=== PATIENT | male | born 1940 | race Caucasian/White ===

== ENCOUNTER 2017-09-20 07:16 | Inpatient (IN) ==
[2017-09-20] MEDS ORDERED: Chlorhexidine 4% Topical 120 APPLIC/120 ML Bottle TOPICAL SCH (09:45)
[2017-09-20] MEDS ORDERED: Sodium Chlor 0.9% Inj 40 ML, Bupivacaine Liposo PF 1.3% Inj 20 ML P-ARTICULR SCH ×2 (09:45)
[2017-09-20] MEDS ORDERED: TRANEXAMIC ACID IV.SIG SCH ×3 (10:00→16:00)
[2017-09-20] MEDS ORDERED: SODIUM CHLOR 0.9% IV.SIG SCH ×3 (10:00→16:00)
[2017-09-20] MEDS ORDERED: Chlorhexidine Gluconate 2% 1 Pack (2 Cloths) TOPICAL SCH ×2 (10:15→10:30)
[2017-09-20] MEDS ORDERED: Metoprolol Tartrate 25 MG Tablet PO SCH ×2 (10:15→10:30)
[2017-09-20] MEDS: ceFAZolin 2 GM Premix Inj 2 GM/50 ML PIGGYBACK IV.SIG SCH (10:40)
[2017-09-20] MEDS ORDERED: Propofol Inj 500 MG/50 ML Vial ONE ×3 (10:53→12:37)
[2017-09-20] MEDS ORDERED: Sodium Chlor 0.9% Inj 500 ML IV.SIG SCH ×2 (11:00)
[2017-09-20] MEDS ORDERED: Phenylephrine/NS 1000 MCG/10ML Syringe IV.PUSH ONE (12:00)
[2017-09-20] MEDS ORDERED: Tranexamic Acid Inj 1,000 MG in Sodium Chlor 0.9% Inj 100 ML IV.SIG SCH (12:43)
--- NOTE | 2017-09-20 13:14 | P.OP ---
- Preoperative Diagnosis (1) Primary osteoarthritis of right hip - Postoperative Diagnosis (1) Primary osteoarthritis of right hip Date of procedure: 09/20/17 Procedure: Right total hip arthroplasty using Lalo prosthesis. Anesthesia: local, spinal Surgeon: Alfredito Taylor MD Customer Care Representative: ANKITA Moore Estimated blood loss (mL): 200 Pathology: none sent Operation and Findings: Indications and Findings: This 77-year-old man has had right hip pain progressively worsening over the past several months. His ambulation tolerance is down to 1 block. He has not responded to conservative measures including nonsteroidal anti-inflammatory agents, activity modification, exercise and ambulatory aids. He was seen by a physician in [place] and treated up there. He subsequently received relocated back down to [place] for treatment of his hip. Physical findings showed limited range of motion of the hip with tenderness on range of motion. He had an antalgic gait. X-rays showed osteoarthritis in the hip including osteophytes femoral head and acetabulum with joint space narrowing and irregularity in the shape of the femoral head. Operative findings: There was loss of articular cartilage to expose subchondral bone on the acetabular and femoral side with femoral and acetabular osteophytes. The right leg was slightly longer than the left prior to the procedure. Implants: The acetabular component was a 54 mm outer diameter trident 2 Tritanium cluster hole acetabular shell with a 36 mm inner diameter X3 polyethylene 0 lip liner. The femoral component was an Accolade 2 size 5 x 132 neck angle. The femoral head was a Biolox Delta 36 mm outer diameter with a - 5 mm offset. The patient was brought to the clean air operating suite and a spinal anesthetic was administered. The patient was positioned into a lateral position with the operative hip up on a [employer] lateral positioner. The hip and lower extremity were prepped with alcohol, Hibiclens and ChloraPrep and draped in the usual manner with the hip draped free. Patient received prophylactic antibiotics preoperatively. The patient also received tranexamic acid preoperatively. An appropriate timeout procedure was carried out. An incision was made from the midportion of the greater trochanter proximally and posteriorly paralleling the fibers of the gluteus rafita. The incision was deepened through subcutaneous tissues down to the fascia scarlett and gluteus fascia. The gluteus fascia was then split longitudinally in line with its fibers up to the upper portion of the fascia scarlett. With wound towels in place, the Charnley retractor was inserted. The sciatic nerve was identified and protected throughout the procedure. Dissection was then carried down to the interval between the gluteus minimus and the piriformis. A retractor was inserted. The piriformis and obturator conjoined tendon was released from the greater trochanter and reflected off the capsule. A capsulotomy was made longitudinally along the femoral neck to the base of the femoral neck and then curved distally along the posterior aspect of the greater trochanter. The hip was internally rotated. Further release of the external rotators was carried out exposing the hip. The hip was dislocated. The femoral neck was transected at the appropriate level using the oscillating saw placement of appropriate retractors. The femoral head was removed. Preparation of the femur was initiated with a box osteotome followed by a curet to identify the medullary canal. Broaching was then initiated with the size 0 broach and went in 1 size increments up to size 5. The broach handle was removed. The femoral neck was then trimmed with a calcar planar. Attention was then directed to the acetabulum. Soft tissues were debrided from the acetabulum. Retractors were placed about the acetabulum. Reaming was then initiated with the 45 millimeter reamer and went in 1-2 mm increments up to the 54 millimeter diameter reamer. A trial reduction with the 54 millimeter trial prosthesis was carried out. When this was deemed to be appropriate, the trial prosthesis was removed. The acetabulum was irrigated and cleaned. The actual prosthesis as noted above was impacted into place and seated appropriately. Drill holes were made and sounded. An appropriate sized screw was inserted to stabilize the acetabulum further. The liner as noted above was inserted into the acetabular shell and impacted into place. Osteophytes were trimmed from the acetabulum. Local anesthetic was administered throughout the area of the acetabulum and anterior aspect of the femur. The trial neck was placed on the broach for the above-noted prosthesis. The femoral head trial was placed onto the femoral neck . A trial reduction was carried out. Adjustment was made as needed. The stability, leg length and motion were excellent. There was no pistoning. The trial prosthesis was removed. The broach was removed. The femoral component was impacted into the medullary canal of the femur after irrigation and suctioning. When this was appropriately seated a trial reduction was again carried out with the trial prosthesis. There was no pistoning. The leg length was appropriate. The stability and motion were excellent. The trial prosthesis was then removed. After cleaning and drying the trunion of the femoral component, the above-noted femoral head was impacted onto the trunnion. The hip was reduced. The stability and mobility were again checked along with leg lengths as noted above. The hip was positioned appropriately and closure commenced after the remainder of the local anesthetic was injected throughout the hip. The external rotators and capsule were repaired with #1 Vicryl interrupted transosseous sutures with a Krakw technique to reattach the external rotators and capsule to the posterior aspect of the greater trochanter. The capsule itself on the superior aspect was closed with #1 Vicryl interrupted [id number] sutures. The sciatic nerve was inspected. The fascia scarlett and gluteus fascia were repaired with #1 Vicryl interrupted [id number] sutures. The subcutaneous tissues were closed with 2-0 Vicryl interrupted simple sutures with buried knots. The skin was closed with a continuous subcuticular closure of 4-0 Monocryl. The wound was then approximated with Dermabond Prineo. A dry sterile dressing was applied to the hip. A knee immobilizer was applied to the leg. The patient was transferred from the operating room to the recovery room in satisfactory condition having tolerated the procedure well. Counts are correct. Specimens: None. Estimated blood loss: 250
[2017-09-20] MEDS ORDERED: Post-op Orders (for Pharmacy) OTHER STA (13:18)
[2017-09-20] MEDS ORDERED: Aluminum/Magnesium/Simethacone Susp 30 ML UDC PO PRN (13:18)
[2017-09-20] MEDS ORDERED: Acetaminophen 325 MG Tablet PO PRN (13:18)
[2017-09-20] MEDS ORDERED: Tranexamic Acid Inj 0 MG in Sodium Chlor 0.9% Inj 100 ML IV.SIG ONE (13:18)
[2017-09-20] MEDS ORDERED: Zolpidem Tartrate 5 MG Tablet PO PRN (13:18)
[2017-09-20] MEDS ORDERED: Bisacodyl 10 MG Supp RECTAL PRN (13:18)
[2017-09-20] MEDS ORDERED: Morphine Inj 4 MG/ML Vial IV.PUSH PRN (13:18)
--- NOTE | 2017-09-20 13:21 | P.DCO ---
- Physical Therapy Physical Therapy: Gait training Hip: Total hip, Protocol: Right, Posterior hip precautions, Progress to weight bearing Canvas Knee Splint: When in bed with 2 pillows between thighs Right Lower Extremity Weight Bearing: Weight bearing as tolerated Right Lower Extremity Range of Motion: Active ROM - Nursing Nursing: Dressing changes Dressing changes: Daily dressing change (Do not remove Dermabond Prineo.), Coverderm/Primapore - Certification Need for Home Health services: I have seen patient Jose Porter on 09/20/17. My clinical findings support the need for the requested home health care services because: Need for Home Health Services: Limited ability to care for self, High risk of falls Homebound Certification: I certify that my clinical findings support that this patient is homebound because: Homebound Certification: Post-op weakness, Unsteady gait/balance, Unsafe to leave home unassisted
[2017-09-20] MEDS: Ketorolac Inj 30 MG/ML (IVP) Vial IV.PUSH SCH ×2 (14:20→21:45)
--- NOTE | 2017-09-20 14:34 | XR ---
EXAM DATE: 09/20/2017 2:29 PM EDT AGE/SEX: 77 years / Male INDICATIONS: Right total hip replacement. CLINICAL DATA: This is the patient's initial encounter. Patient reports that signs and symptoms have been present for 1 day and indicates a pain score of 0/10. MEDICAL/SURGICAL HISTORY: Osteoarthritis. . Left total hip replacement. COMPARISON: No prior exams available for comparison. FINDINGS: Bilateral total hip arthroplasties are noted. There is trace subcutaneous air about the right hip nusrat nt. The femoral and acetabular components appear well seated. There is no fracture or dislocation. CONCLUSION: Interval right total hip arthroplasty. Electronically signed by: Trell Lujan MD 09/20/2017 2:32 PM EDT
--- NOTE | 2017-09-20 17:41 | P.CONIM ---
History of Present Illness Service: [facility] [place] Consult date: 09/20/17 Requesting Physician: Alfredito Taylor Reason for Consult: Medical management Primary Care Provider: Jose Alberto MD Family Provider: Jose Alberto MD History of Present Illness: 77 YOWM with history of HLD, OA, glaucoma, and allergic rhinitis admitted for elective R total hip replacement. [facility] [place] consulted for medical management. Patient seen post-operatively. Reports pain is well-controlled. Denies CP, SOB, abdominal pain, N/V. PMFSH - History History Provided By: Patient - Medical History Medical History: Medical History (Last Reviewed 09/20/17 @ 15:26 by Elisabeth Schulz PT) Carpal tunnel syndrome on left Benign prostate hyperplasia Glaucoma Hearing aid worn Hyperlipidemia Osteoarthritis of left hip Pain of right hip joint Wears eyeglasses - Surgical History Surgical History: Surgical History (Last Reviewed 09/20/17 @ 15:26 by Elisabeth Schulz PT) History of mandibular surgery History of total bilateral knee replacement (TKR) History of total left hip replacement Hx of appendectomy Hx of inguinal hernia repair - Tobacco History Second Hand Smoke Exposure: No Tobacco Use In Past 30 Days: No Smoking Status: Former smoker - Alcohol History How Often Do You Have a Drink Containing Alcohol: 4 or more times a week - Substance Use History Substance History: No History of Abuse - Travel History Recent Travel in the [place] Within the Last 8 Weeks: Yes Medications and Allergies Active Medications: Active Medications Acetaminophen (Tylenol) 650 mg PO Q6H PRN PRN Reason: Pain Less Than 3 On Scale Hydrocodone Bitart/Acetaminophen ([place] 7.5/325) 1 tab PO Q4H PRN PRN Reason: PAIN SCALE 4 TO 6 MODERATE Hydrocodone Bitart/Acetaminophen ([place] 7.5/325) 2 tab PO Q6H PRN PRN Reason: PAIN SCALE 7 TO 10 SEVERE Al Hydrox/Mg Hydrox/Simethicone (Mag-Al Plus Susp Liq) 30 ml PO Q6H PRN PRN Reason: INDIGESTION Al Hydroxide/Mg Hydroxide (Milk Of Magnesia Liq) 30 ml PO BID PRN PRN Reason: Mild Constipation Ascorbic Acid (Vitamin C) 500 mg PO DAILY [facility] Aspirin (Aspirin Chew) 81 mg PO BID [facility] Bisacodyl (Dulcolax Supp) 10 mg RECTAL DAILY PRN PRN Reason: SEVERE CONSITIPATION Brimonidine Tartrate (Alphagan 0.2% Opth Drops) 1 drops EACH EYE BID [facility] Chlorhexidine Gluconate (Hibiclens 4% Topical) 1 applicatio TOPICAL ONCE [facility] Stop: 09/24/17 09:44 Chlorhexidine Gluconate (Chlorhexidine 2% Cloth) 3 pack TOPICAL [employer] [facility] Stop: 09/23/17 10:02 Sodium Chloride 40 ml/ (Bupivacaine Liposome 20 ml) 0 ml P-ARTICULR ONCE [facility] Last Admin: 09/20/17 11:02 Dose: 1 bag Diphenhydramine HCl (Benadryl) 25 mg PO Q6H PRN PRN Reason: ITCHING Cefazolin Sodium/Dextrose (Ancef 2 Gm Premix Inj) 2 gm in 50 mls @ 100 mls/hr IV.SIG [employer] [facility] Stop: 09/24/17 09:59 Last Infusion: 09/20/17 11:10 Dose: Infused Tranexamic Acid 972 mg/ Sodium (Chloride) 109.72 mls @ 200 mls/hr IV.SIG ONCE [facility] Stop: 09/20/17 19:00 Lactated Ringer's (Lr 1000 Ml Inj) 1,000 mls @ 30 mls/hr IV.SIG .Q24H [facility] Stop: 09/23/17 10:02 Sodium Chloride (Ns Inj) 500 mls @ 30 mls/hr IV.SIG .Q10H [facility] Stop: 09/23/17 10:02 Cefazolin Sodium 1,000 mg/ (Sodium Chloride) 100 mls @ 200 mls/hr IV.SIG Q6H [facility] Stop: 09/21/17 04:29 Last Admin: 09/20/17 15:00 Dose: 200 mls/hr Lactated Ringer's (Lr 1000 Ml Inj) 1,000 mls @ 80 mls/hr IV.CONT .[id number] [facility] Last Admin: 09/20/17 14:00 Dose: 80 mls/hr Ketorolac Tromethamine (Toradol Inj) 15 mg IV.PUSH Q6H [facility] Stop: 09/22/17 08:01 Last Admin: 09/20/17 14:20 Dose: 15 mg Lactulose (Lactulose Liq) 30 ml PO DAILY PRN PRN Reason: SEVERE CONSITIPATION Latanoprost (Xalatan 0.005% Opth Drops) 1 drop EACH EYE HS [facility] Loratadine (Claritin) 10 mg PO HS [facility] Metoprolol Tartrate (Lopressor) 25 mg PO [employer] [facility] Stop: 09/23/17 10:02 Miscellaneous Information ([facility] Information) 1 each OTHER UNSCH PRN PRN Reason: SEE LABEL COMMENTS Stop: 09/21/17 13:17 Montelukast Sodium (Singulair) 10 mg PO HS [facility] Morphine Sulfate (Morphine Inj) 2 mg IV.PUSH Q3H PRN PRN Reason: BREAKTHROUGH PAIN Multivitamins (Theragran) 1 tab PO DAILY [facility] Ondansetron HCl (Zofran Odt) 4 mg PO Q6H PRN PRN Reason: NAUSEA OR VOMITING Povidone Iodine (Betadine 5% Antisepsis Kit) 1 applicatio EACH NARE [employer] [facility] Stop: 09/23/17 10:02 Pravastatin Sodium (Pravachol) 80 mg PO QPM [facility] Senna/Docusate Sodium (Sana-Colace) 1 tab PO BID [facility] Sennosides (Senokot) 17.2 mg PO BID PRN PRN Reason: Moderate Constipation Sodium Chloride (Ns Flush) 2 ml IV.FLUSH BID [facility] Sodium Chloride (Ns Flush) 2 ml IV.FLUSH PRN PRN PRN Reason: FLUSH AFTER USING IV ACCESS Timolol Maleate (Timoptic 0.5% Drops) 1 drops EACH EYE BID [facility] Zolpidem Tartrate (Ambien) 5 mg PO HS PRN PRN Reason: INSOMNIA Allergies Allergy/AdvReac Type Severity Reaction Status Date / Time No Known Allergies Allergy Verified 09/20/17 08:26 Home Medications Medication Instructions Recorded Confirmed Type ascorbic acid (vitamin C) 500 mg PO DAILY 09/09/17 09/20/17 History aspirin 81 mg PO DAILY 09/09/17 09/20/17 History bimatoprost [Lumigan] 1 drp OPHTHALMIC (EYE) QPM 09/09/17 09/20/17 History brimonidine-timolol [Combigan] 1 drp OPHTHALMIC (EYE) BID 09/09/17 09/20/17 History calcium carbonate [Calcium 600] 600 mg PO DAILY 09/09/17 09/20/17 History fexofenadine 180 mg PO HS 09/09/17 09/20/17 History ibuprofen-diphenhydramine cit 1 tab PO DAILY 09/09/17 09/20/17 History [Advil PM] montelukast [Singulair] 10 mg PO QPM 09/09/17 09/20/17 History omega 8-smf-ans-fish oil [Fish Oil] 1,000 unit PO BID 09/09/17 09/20/17 History simvastatin 40 mg PO QPM 09/09/17 09/20/17 History vitamin B complex [B 1 tab PO DAILY 09/09/17 09/20/17 History Complex-Vitamin B12] Exam Vital signs: Vital Signs 09/20/17 08:33 09/20/17 13:15 09/20/17 13:30 Temperature 97.8 F 97.4 F L Pulse Rate 66 70 70 Respiratory Rate 16 16 16 Blood Pressure 131/72 109/56 L 108/59 L Pulse Oximetry 95 94 L 94 L 09/20/17 13:45 09/20/17 14:00 09/20/17 14:15 Temperature Pulse Rate 60 60 60 Respiratory Rate 16 16 16 Blood Pressure 110/59 L 130/59 L 124/58 L Pulse Oximetry 96 96 96 09/20/17 14:30 09/20/17 15:00 Temperature Pulse Rate 60 60 Respiratory Rate 16 16 Blood Pressure 121/57 L 122/57 L Pulse Oximetry 94 L 95 Intake & Output 09/19/17 09/20/17 09/20/17 18:59 06:59 18:59 Intake Total 1998.72 / 72 Output Total 200 / 200 Balance 1799.72 / 1799.72 Weight 97.2 kg Intake: IV 1159.72 / 1159.72 LR 1000 mL Inj 1,000 ML @ 0 mls 1000 / 1000 /hr .ROUTE .STK-MED ONE Rx#: [id number] Cyklokapron Inj 972 MG In NS 109.72 / 109.72 Inj 100 ML @ 200 mls/hr IV.SIG ONCE [facility] Rx#:[id number] Ancef 2 GM Premix Inj 2 gm In 50 / 50 50 ml @ 100 mls/hr IV.SIG [employer] [facility] Rx#:[id number] Anesthesia Amount 840 / 840 Output: Estimated Blood Loss 200 / 200 Other: Weight On Admission 97.2 kg Narrative: GENERAL: WN, WD male resting in bed in [facility]. SKIN: Warm and dry. HEART: RRR no m/r/g. LUNGS: CTAB without wheezes or crackles. ABDOMEN: +BS, soft, NT, ND. EXTREMITIES: No LE edema. 2+ pedal pulses. Dressing over R hip. NEURO: Awake and alert. Nonfocal. PSYCH: Appropriate mood and affect. Results - Labs Labs: Laboratory Results - last 24 hr 09/20/17 08:40 Blood Type A Positive Antibody Screen Negative - Imaging Impressions Hip X-Ray 09/20/17 13:14 CONCLUSION: Interval right total hip arthroplasty. Assessment and Plan - Assessment (1) Status post total replacement of right hip Code(s): Z96.641 - Presence of right artificial hip joint Status: Acute - Plan 77 YOWM with history of HLD, OA, glaucoma, and allergic rhinitis admitted for elective R total hip replacement. [facility] [place] consulted for medical management. 1. R THR - Post-operative management and pain control per ortho 2. HLD - Resume home statin 3. Glaucoma - Resume home drops 4. Allergic rhinitis - Resume home Singulare and Claritin DVT prophylaxis: anticoagulation per ortho Discussed Condition With: The patient
[2017-09-20] MEDS ORDERED: Non-Formulary Drug (Brimonidine-Timolol [Combigan] 1 DRP) EACH EYE SCH (21:00)
[2017-09-20] MEDS ORDERED: OMEGA DHA EPA FISH OIL PO SCH (21:00)
[2017-09-20] MEDS: Montelukast 10 MG Tablet PO SCH (21:48)
[2017-09-20] MEDS: Senna/Docusate Sodium 8.6/50 MG Tablet PO SCH (21:48)
[2017-09-20] MEDS: Loratadine 10 MG Tablet PO SCH (21:48)
[2017-09-21] MEDS: Ketorolac Inj 30 MG/ML (IVP) Vial IV.PUSH SCH ×4 (02:04→23:51)
[2017-09-21] MEDS: Timolol 0.5% Drops 5 ML Bottle EACH EYE SCH ×3 (02:08→23:26)
[2017-09-21] MEDS: Brimonidine 0.2% Opth Drops 5 ML Bottle EACH EYE SCH ×3 (02:08→23:22)
[2017-09-21] MEDS: Latanoprost 0.005% Opth Drops 2.5 ML Bottle EACH EYE SCH ×2 (02:10→23:27)
--- NOTE | 2017-09-21 06:19 | P.PNOP ---
Subjective Interval history: Postop day #1. He is doing relatively well. The pain that he had preoperatively is gone. His major concern is that he has difficulty voiding. And up walking. He has walked to the bathroom. Physical therapy notes shows that he has walked 25 feet. Physical Exam Vital signs: Vital Signs 09/20/17 08:33 09/20/17 13:15 09/20/17 13:30 Temperature 97.8 F 97.4 F L Pulse Rate 66 70 70 Respiratory Rate 16 16 16 Blood Pressure 131/72 109/56 L 108/59 L Pulse Oximetry 95 94 L 94 L 09/20/17 13:45 09/20/17 14:00 09/20/17 14:15 Temperature Pulse Rate 60 60 60 Respiratory Rate 16 16 16 Blood Pressure 110/59 L 130/59 L 124/58 L Pulse Oximetry 96 96 96 09/20/17 14:30 09/20/17 15:00 09/20/17 16:00 Temperature 98.0 F Pulse Rate 60 60 57 L Respiratory Rate 16 16 18 Blood Pressure 121/57 L 122/57 L 116/67 Pulse Oximetry 94 L 95 95 09/20/17 20:00 09/21/17 00:00 09/21/17 04:00 Temperature 98.1 F 98.8 F 98.3 F Pulse Rate 78 83 81 Respiratory Rate 18 18 18 Blood Pressure 138/72 127/69 136/71 Pulse Oximetry 93 L 93 L 94 L Intake & Output 09/20/17 09/20/17 09/21/17 06:59 18:59 06:59 Intake Total 2099.72 / 2099.72 Output Total 200 / 200 Balance 1899.72 / 1899.72 Weight 97.2 kg Intake: IV 1259.72 / 1259.72 LR 1000 mL Inj 1,000 ML @ 0 mls 1000 / 1000 /hr .ROUTE .STK-MED ONE Rx#: [id number] Cyklokapron Inj 972 MG In NS 109.72 / 109.72 Inj 100 ML @ 200 mls/hr IV.SIG ONCE [facility] Rx#:[id number] Ancef 2 GM Premix Inj 2 gm In 50 / 50 50 ml @ 100 mls/hr IV.SIG [employer]OPER[employer] MANAGER [facility] Rx#:[id number] Ancef Inj 1,000 MG In NS Inj 100 / 100 100 ML @ 200 mls/hr IV.SIG Q6H [facility] Rx#:[id number] Anesthesia Amount 840 / 840 Output: Estimated Blood Loss 200 / 200 Other: Weight On Admission 97.2 kg Narrative: He is resting comfortably, supine in bed. The neurovascular status is intact. His dressing is dry and intact. Results - Labs CBC & Chem 7: 09/21/17 05:48 Laboratory Results - last 24 hr 09/20/17 08:40 Blood Type A Positive Antibody Screen Negative - Imaging Impressions Hip X-Ray 09/20/17 13:14 CONCLUSION: Interval right total hip arthroplasty. - Procedures Right total hip arthroplasty using Bancro[place] prosthesis on 09/20/2017. Assessment and Plan - Ortho Post Op Day # 1 - Problem List (1) Status post total replacement of right hip Code(s): Z96.641 - Presence of right artificial hip joint Status: Acute Plan: Continue postop care and PT. (2) Primary osteoarthritis of right hip Code(s): M16.11 - Unilateral primary osteoarthritis, right hip Status: Acute - Assessment and Plan Condition: Good. Orthopedically stable. DVT prophylaxis: TEDs, aspirin, sequentials. Discharge plans: Home with home health care. An appointment was scheduled through the office. Prescriptions: [place] 7.5/325; Patient is having significant pain caused by a total hip replacement which will last more than 3 days. Trial of Tylenol has not helped. I believe that it is medically necessary to treat patients pain because it is affecting patients ability to participate in postoperative rehabilitation and perform activities of daily living in a comfortable and efficient manner.
[2017-09-21 06:21] LABS: Hematocrit 35.4 % (39.0-51.0)
--- NOTE | 2017-09-21 06:23 | P.DS ---
Date of admission: 09/20/17 07:16 Primary care physician: Jose Alberto MD Attending physician on discharge: Alfredito Taylor Anticipated date of discharge: 09/21/17 Brief History from admission: This 77-year-old man has had several months worth of right hip pain nonresponsive to conservative measures. He was seen by the orthopedic surgeon in [place] who recommended a total hip arthroplasty. He returned to [place] to have this done. He was found to have limited range of motion in the hip with tenderness on motion and an antalgic gait. X-rays showed arthritis in the right hip. DS: Diagnosis - Discharge Diagnosis (1) Status post total replacement of right hip Status: Acute (2) Primary osteoarthritis of right hip Status: Acute (3) Postoperative urinary retention Status: Acute DS: Medications - Discharge Medications Prescriptions: hydrocodone-acetaminophen 1 tab PO Q4H PRN 7 Days #42 tab PRN Reason: Pain DS: Summary Hospital Course: The patient was admitted as noted above. The above noted operative procedure was carried out that day. Preoperatively prophylactic antibiotics were administered Ancef according to protocol. These were continued postoperatively. The patient also received tranexamic acid to help with hemostasis according to protocol. In the postanesthesia care unit mechanical methods of DVT prophylaxis in the form of RACHAEL stockings and sequentials were initiated. Physical therapy was initiated on the day of surgery. On postoperative day #1 physical therapy continued. DVT prophylaxis with aspirin 81 mg was initiated at this time. The patient continued physical therapy throughout the hospitalization. The distance walked and range of motion improved throughout the hospitalization. He did have some difficulty with urinary retention. He had straight catheterization carried out. An order for a urologic consultation was given. On postoperative day #2, physical therapy continued. The patient was discharged on postoperative day 2 with the disposition being to home with home health care. An appointment for follow-up was made prior to admission. - Time Spent with Patient Total time spent providing and/or coordinating discharge services: - Quality: VTE Deep Vein Thrombosis/Pulmonary Embolism Present on Admission: No Exam Vital signs: Vital Signs 09/20/17 08:33 09/20/17 13:15 09/20/17 13:30 Temperature 97.8 F 97.4 F L Pulse Rate 66 70 70 Respiratory Rate 16 16 16 Blood Pressure 131/72 109/56 L 108/59 L Pulse Oximetry 95 94 L 94 L 09/20/17 13:45 09/20/17 14:00 09/20/17 14:15 Temperature Pulse Rate 60 60 60 Respiratory Rate 16 16 16 Blood Pressure 110/59 L 130/59 L 124/58 L Pulse Oximetry 96 96 96 09/20/17 14:30 09/20/17 15:00 09/20/17 16:00 Temperature 98.0 F Pulse Rate 60 60 57 L Respiratory Rate 16 16 18 Blood Pressure 121/57 L 122/57 L 116/67 Pulse Oximetry 94 L 95 95 09/20/17 20:00 09/21/17 00:00 09/21/17 04:00 Temperature 98.1 F 98.8 F 98.3 F Pulse Rate 78 83 81 Respiratory Rate 18 18 18 Blood Pressure 138/72 127/69 136/71 Pulse Oximetry 93 L 93 L 94 L Intake & Output 09/20/17 09/20/17 09/21/17 06:59 18:59 06:59 Intake Total 2099.72 / 2099.72 Output Total 200 / 200 Balance 1899.72 / 1899.72 Weight 97.2 kg Intake: IV 1259.72 / 1259.72 LR 1000 mL Inj 1,000 ML @ 0 mls 1000 / 1000 /hr .ROUTE .[facility] Rx#: [id number] Cyklokapron Inj 972 MG In NS 109.72 / 109.72 Inj 100 ML @ 200 mls/hr IV.SIG ONCE [facility] Rx#:[id number] Ancef 2 GM Premix Inj 2 gm In 50 / 50 50 ml @ 100 mls/hr IV.SIG [employer] [facility] Rx#:[id number] Ancef Inj 1,000 MG In NS Inj 100 / 100 100 ML @ 200 mls/hr IV.SIG Q6H [facility] Rx#:[id number] Anesthesia Amount 840 / 840 Output: Estimated Blood Loss 200 / 200 Other: Weight On Admission 97.2 kg Narrative: He is resting comfortably, supine in bed. The dressing is dry and intact. The neurovascular status is intact. Results Procedures completed during hospitalization: Right total hip arthroplasty using Lalo prosthesis on 09/20/2017. Labs on day of discharge: Labs from last 24 hours 09/21/17 09/20/17 05:48 08:40 Hgb Pending Hct Pending Blood Type A Positive Antibody Screen Negative - Impressions ITS Impressions Hip X-Ray 09/20/17 13:14 CONCLUSION: Interval right total hip arthroplasty. Discharge Plan - Discharge Disposition Patient Disposition: W/Home Health Service - Discharge Condition Condition: Stable - Discharge Order Discharge Orders: Discharge Order (Routine); Ordered 09/21/17 Ordered By: Alfredito Taylor - Discharge Details Anticipated Discharge Date: 09/21/17 - Physicians Team Primary Care Provider: Jose Alberto Attending Provider: Alfredito Taylor Other Providers: Bibi Silva MD ; [employer] [facility] ; Oleg Garcia DO - Rxs /Orders / Referrals /Forms Prescriptions: New aspirin 81 mg Tablet,Chewable 81 mg PO BID RF: 0 hydrocodone-acetaminophen 7.5-325 mg Tablet 1 tab PO Q4H PRN (Reason: Pain) 7 Days Qty: 42 RF: 0 Continue ascorbic acid (vitamin C) 500 mg Tablet 500 mg PO DAILY bimatoprost [Lumigan] 0.01 % Drops 1 drp OPHTHALMIC (EYE) QPM brimonidine-timolol [Combigan] 0.2-0.5 % Drops 1 drp OPHTHALMIC (EYE) BID calcium carbonate [Calcium 600] 600 mg calcium (1,500 mg) Tablet 600 mg PO DAILY fexofenadine 180 mg Tablet 180 mg PO HS ibuprofen-diphenhydramine cit [Advil PM] 200-38 mg Tablet 1 tab PO DAILY montelukast [Singulair] 10 mg Tablet 10 mg PO QPM omega 8-fat-jag-fish oil [Fish Oil] 1,000 mg (120 mg-180 mg) Capsule 1,000 unit PO BID simvastatin 40 mg Tablet 40 mg PO QPM vitamin B complex [B Complex-Vitamin B12] Tablet 1 tab PO DAILY Discontinued aspirin 81 mg Tablet,Delayed Release (Dr/Ec) 81 mg PO DAILY Referrals: Alfredito Taylor MD [Physician] - See Instructions Jose Alberto MD [Primary Care Provider] - See Instructions - Discharge Instructions Patient Printed Instructions: Total Hip Replacement (DC)
[2017-09-21] MEDS: ceFAZolin 2 GM Premix Inj 2 GM/50 ML PIGGYBACK IV.SIG SCH (06:56)
[2017-09-21] MEDS: Ascorbic Acid 500 MG Tablet PO SCH (10:03)
[2017-09-21] MEDS: Senna/Docusate Sodium 8.6/50 MG Tablet PO SCH ×2 (10:03→23:28)
--- NOTE | 2017-09-21 21:06 | P.PN ---
Subjective Interval history: cancel Physical Exam Vital signs: Vital Signs 09/21/17 00:00 09/21/17 04:00 09/21/17 08:00 Temperature 98.8 F 98.3 F 98.2 F Pulse Rate 83 81 88 Respiratory Rate 18 18 20 Blood Pressure 127/69 136/71 137/60 Pulse Oximetry 93 L 94 L 94 L 09/21/17 12:00 09/21/17 16:00 09/21/17 17:13 Temperature 97.5 F L 97.4 F L Pulse Rate 85 73 Respiratory Rate 18 20 16 Blood Pressure 126/71 118/60 Pulse Oximetry 94 L 94 L Intake & Output 09/21/17 09/21/17 09/22/17 06:59 18:59 06:59 Intake Total 960 / 960 Output Total 250 / 250 1250 / 1250 Balance -250 / -250 -290 / -290 Weight 97.2 kg Intake: Oral 960 / 960 Output: Urine 250 / 250 0 / 0 Urine Amount (Catheter) 1250 / 1250 Straight 1250 / 1250 Other: Post Void Residual 891 # Voids 1 Date of Last Bowel Movement 09/18/17 09/18/17 # Bowel Movements 0 - Urinary Catheter Management Straight Cath placed during this visit: yes, but has since been removed by the nurse Reason for continuing: Not indwelling catheter Insertion date: 09/21/17 Insertion time: 11:20 Removal date: 09/21/17 Removal time: 11:25 Results - Labs CBC & Chem 7: 09/21/17 05:48 Laboratory Results - last 24 hr 09/21/17 05:48 Hgb 12.0 L Hct 35.4 L - Procedures Right total hip arthroplasty using Hutchinson prosthesis on 09/20/2017. Assessment and Plan - Assessment (1) Status post total replacement of right hip Code(s): Z96.641 - Presence of right artificial hip joint Status: Acute
[2017-09-21] MEDS: Montelukast 10 MG Tablet PO SCH (21:45)
[2017-09-21] MEDS: Loratadine 10 MG Tablet PO SCH (21:45)
--- NOTE | 2017-09-21 22:25 | P.PN ---
Physical Exam Vital signs: Vital Signs 09/21/17 00:00 09/21/17 04:00 09/21/17 08:00 Temperature 98.8 F 98.3 F 98.2 F Pulse Rate 83 81 88 Respiratory Rate 18 18 20 Blood Pressure 127/69 136/71 137/60 Pulse Oximetry 93 L 94 L 94 L 09/21/17 12:00 09/21/17 16:00 09/21/17 17:13 Temperature 97.5 F L 97.4 F L Pulse Rate 85 73 Respiratory Rate 18 20 16 Blood Pressure 126/71 118/60 Pulse Oximetry 94 L 94 L Intake & Output 09/21/17 09/21/17 09/22/17 06:59 18:59 06:59 Intake Total 960 / 960 Output Total 250 / 250 1250 / 1250 Balance -250 / -250 -290 / -290 Weight 97.2 kg Intake: Oral 960 / 960 Output: Urine 250 / 250 0 / 0 Urine Amount (Catheter) 1250 / 1250 Straight 1250 / 1250 Other: Post Void Residual 891 # Voids 1 Date of Last Bowel Movement 09/18/17 09/18/17 # Bowel Movements 0 Narrative: Subjective: Patient in bed ith urinary retention Patient says first time having this problem Started flomax Had straight cath On fluids Will consult urology if not able to urinate Physical exam: GENERAL: Very pleasant male resting in bed in [facility]. HEART: RRR no m/r/g. LUNGS: CTAB without wheezes or crackles. ABDOMEN: +BS, soft, NT, ND. EXTREMITIES: No LE edema. 2+ pedal pulses. Dressing over R hip c/d/di. NEURO: Awake and alert. Nonfocal. PSYCH: Appropriate mood and affect. Assessment and Plan 77 YOWM with history of HLD, OA, glaucoma, and allergic rhinitis admitted for elective R total hip replacement. [facility] consulted for medical management. 1. R THR - Post-operative management and pain control per ortho 2. HLD - Resume home statin 3. Glaucoma - Resume home drops 4. Allergic rhinitis - Resume home Singulare and Claritin 5. Urinary retention: started flomax, urinary bladder with urinary retention, straight cath . Consult urology as no improvement DVT prophylaxis: anticoagulation per ortho Discussed Condition With: The patient, nurse - Urinary Catheter Management Straight Cath placed during this visit: yes, but has since been removed by the nurse Reason for continuing: Not indwelling catheter Insertion date: 09/21/17 Insertion time: 11:20 Removal date: 09/21/17 Removal time: 11:25 Results - Labs CBC & Chem 7: 09/21/17 05:48 Laboratory Results - last 24 hr 09/21/17 05:48 Hgb 12.0 L Hct 35.4 L - Procedures Right total hip arthroplasty using Pierpont prosthesis on 09/20/2017. Assessment and Plan - Assessment (1) Status post total replacement of right hip Code(s): Z96.641 - Presence of right artificial hip joint Status: Acute
[2017-09-22] MEDS: Ketorolac Inj 30 MG/ML (IVP) Vial IV.PUSH SCH ×2 (03:37→08:00)
[2017-09-22 06:46] LABS: Hematocrit 36.2 % (39.0-51.0); Hemoglobin 12.1 gm/dL (13.0-17.0)
--- NOTE | 2017-09-22 07:17 | P.PNOP ---
Subjective Interval history: Postop day #2. He is doing much better. He is able to walk a little bit better. His hip feels good. He has had some difficulty with voiding. He has been straight catheterized but now is doing relatively well on Flomax. PT notes show that he walked 82 feet in the morning and 150 feet in the afternoon. Physical Exam Vital signs: Vital Signs 09/21/17 08:00 09/21/17 12:00 09/21/17 16:00 Temperature 98.2 F 97.5 F L 97.4 F L Pulse Rate 88 85 73 Respiratory Rate 20 18 20 Blood Pressure 137/60 126/71 118/60 Pulse Oximetry 94 L 94 L 94 L 09/21/17 17:13 09/21/17 20:00 09/22/17 00:00 Temperature 99.2 F 98.8 F Pulse Rate 86 75 Respiratory Rate 16 17 14 Blood Pressure 118/55 L 110/50 L Pulse Oximetry 94 L 95 09/22/17 04:00 Temperature 98.5 F Pulse Rate 70 Respiratory Rate 14 Blood Pressure 117/57 L Pulse Oximetry 95 Intake & Output 09/21/17 09/22/17 09/22/17 18:59 06:59 18:59 Intake Total 960 / 960 Output Total 1250 / 1250 Balance -290 / -290 Weight 97.2 kg Intake: Oral 960 / 960 Output: Urine 0 / 0 Urine Amount (Catheter) 1250 / 1250 Straight 1250 / 1250 Other: Post Void Residual 891 400 # Voids 1 Date of Last Bowel Movement 09/18/17 # Bowel Movements 0 Narrative: He is resting comfortably, supine in bed. The dressing is dry and intact. His neurovascular status is intact. - Urinary Catheter Management Straight Cath placed during this visit: yes, but has since been removed by the nurse Reason for continuing: Not indwelling catheter Insertion date: 09/21/17 Insertion time: 11:20 Removal date: 09/21/17 Removal time: 11:25 Results - Labs CBC & Chem 7: 09/22/17 05:55 Laboratory Results - last 24 hr 09/22/17 05:55 Hgb 12.1 L Hct 36.2 L - Imaging Hip X-Ray 09/20/17 13:14 CONCLUSION: Interval right total hip arthroplasty. - Procedures Right total hip arthroplasty using Lalo prosthesis on 09/20/2017. Assessment and Plan - Ortho Post Op Day # 2 - Problem List (1) Status post total replacement of right hip Code(s): Z96.641 - Presence of right artificial hip joint Status: Acute (2) Primary osteoarthritis of right hip Code(s): M16.11 - Unilateral primary osteoarthritis, right hip Status: Acute (3) Postoperative urinary retention Code(s): N99.89 - Other postprocedural complications and disorders of genitourinary system; R33.8 - Other retention of urine Status: Acute Plan: A urology consult will be obtained. - Assessment and Plan Condition: Good. Orthopedically stable. DVT prophylaxis: TEDs, aspirin, sequentials. Discharge plans: Home with home health care. An appointment was scheduled through the office. Prescriptions: [place] 7.5/325; Patient is having significant pain caused by a total hip replacement which will last more than 3 days. Trial of Tylenol has not helped. I believe that it is medically necessary to treat patients pain because it is affecting patients ability to participate in postoperative rehabilitation and perform activities of daily living in a comfortable and efficient manner.
[2017-09-22] MEDS: Senna/Docusate Sodium 8.6/50 MG Tablet PO SCH (08:00)
[2017-09-22] MEDS: Ascorbic Acid 500 MG Tablet PO SCH (08:00)
--- NOTE | 2017-09-22 10:31 | P.PNADD ---
Addendum to Inpatient Note Reason for Addendum: Additional Documentation Additional information: Consulted urology. Patient has clemens. Urology recommends continuing clemens at [place]. TO FOLLOW UP OP WITH UROLOGY IN 5 DAYS CONTINUE FLOMAX DISCUSSED WITH THE NURSE PATIENT IS STABLE MEDICALLY FOR DC CAN DC PATIENT TO FOLLOW UP OP WITH PCP AND CONSULTANTS
[2017-09-22 10:47] VITALS: BP 117/59; PULSE 83; RESP 19; TEMP 97.3; O2SAT 93
--- NOTE | 2017-09-22 12:11 | MB ---
cc: JoseAbhinavOleg W DO DATE: 09/22/2017 HISTORY OF PRESENT ILLNESS: Mr. Porter is a pleasant 77-year-old male who recently underwent a right hip replacement by Dr. Taylor. Prior to his hospitalization, he was noting nocturia 3 times as well as some recent onset of erectile dysfunction. Postoperatively, he was requiring straight catheterizing due to being in retention. This morning on exam, his bladder was distended; and I placed a Medley catheter at the bedside and 1400 mL of clear yellow urine were drained. He felt much better after this. He was started on Flomax last night and this takes at least a steady state to be reached after 5-7 days. PAST MEDICAL HISTORY: Includes a glaucoma, hyperlipidemia, osteoarthritis. PAST SURGICAL HISTORY: Noted recent right hip replacement, bilateral knee replacement, left hip replacement, appendectomy, inguinal hernia repair, mandibular surgery. SOCIAL HISTORY: Denies smoking, drinking presently. He was a former smoker. He does drink alcohol a few times a week. Denies any substance abuse. MEDICATIONS: For medications, please refer to the chart. FAMILY HISTORY: Denies any family history of prostate cancer. REVIEW OF SYSTEMS: Notes some gait disturbances after a recent hip surgery. Does note nocturia x 3 prior to admission with erectile dysfunction. Denies hematuria. Denies urinary tract infections. Denies stone or gross hematuria. Denies chest pain, denies shortness of breath. Denies abdominal pain or constipation. Denies skin lesions or psychiatric problems. Remaining review of systems were reviewed and were negative. PHYSICAL EXAMINATION: VITAL SIGNS: Temperature 98.5, heart rate 70, respiratory rate 14, 117/57 is his blood pressure, 95% on room air. GENERAL: He is a well-developed, well-nourished, 77-year-old male in no acute distress. HEENT: Normocephalic, atraumatic. Pupils equal, round, regular, and reactive to light. Extraocular movements intact. NECK: Supple. HEART: Regular rate and rhythm. LUNGS: Clear. ABDOMEN: Soft. Bladder is distended on exam. GENITOURINARY: Normal phallus. Testes descended. Medley catheter placed for 1400 mL at the bedside. EXTREMITIES: Show no cyanosis, clubbing, or edema. NEUROLOGIC: Cranial nerves 2-12 are intact. DIAGNOSTIC DATA: Hemoglobin is 12.1, hematocrit 36.2. ASSESSMENT AND PLAN: A 77-year-old male status post right hip replacement with history of lower urinary tract symptoms with nocturia x 3 and now in urinary retention postoperatively. Medley catheter placed at the bedside for 1400 mL this morning. We will continue with Flomax for now. Allow the bladder to rest by leaving the Medley in until Wednesday and the patient will follow up in the office on Wednesday morning and undergo a void trial at that time. Thank you for the consult and allowing me to participate in the care of this patient. DO RAUL Barnes/ben/speedy , 10:19 AM , 10:29 AM
== END 2017-09-22 12:08 | disposition home health service (06) ==
LOC: HSDI 07:16 → N06 15:20
PROVIDERS: ADMIT Orthopaedic Surgery; ATTEND Orthopaedic Surgery